=== PATIENT | female | born 1960 | race Caucasian/White ===

== ENCOUNTER 2021-11-10 09:53 | Outpatient (CLI) | payer OTHER, SELFPAY ==
--- NOTE | 2021-11-10 09:57 | ECG_ITS ---
Measurements Intervals [place] Rate: 73 P: 25 [place]: 139 QRS: -13 QRSD: 85 T: 12 QT: 369 QTc: 409 Interpretive Statements SINUS RHYTHM NORMAL ECG NO PREVIOUS ECG AVAILABLE FOR COMPARISON Electronically Signed On 11-10-2021 16:10:58 CDT by Td Sinclair M.D.
[2021-11-10 12:09] LABS: Hematocrit 45.6 % (37.0-47.0); Hemoglobin 15.4 g/dL (12.0-15.0)
== END 2021-11-10 09:54 | disposition home or self-care (01) ==
LOC: ANHSURGERY 09:56
PROVIDERS: Anesthesiology; PCP Family Medicine; Visit Provider Surgery Plastic and Reconstructive Surgery
DX: Z01.818 Encounter for other preprocedural examination (principal)
CPT/HCPCS: 36415; 85014; 85018; 93005

== ENCOUNTER 2021-11-16 01:00 | Day surgery (SDC) | payer OTHER, SELFPAY ==
[2021-11-06 15:32] VITALS: BMI 29.2
--- NOTE | 2021-11-06 15:45 | PC.NURSE ---
Report to the Outpatient Waiting Room, entrance under the green pavilion located off [facility], at time 6:00 on date 11/16/21. OR Time: 7:30. - You and your visitor will be asked a series of questions to screen for COVID 19 for your protection. - A mask is required within the hospital. One visitor will be allowed to accompany the patient into the hospital. Patients visitor will be instructed to remain with patient at all times or leave the building. We will allow the visitor to come back to the postoperative area when patient is ready. Preoperative COVID Testing Requirements: No COVID Test needed if: (proof is required; if not received patient will have Rapid Test prior to entry) - Patient has received COVID Vaccine at least 14 days prior to procedure date or - Patient has positive COVID test result within last 90 days of surgery date. COVID Test needed if above criteria is not met Patients may have clear liquids (water, carbonated beverages, clear teas, apple juice) until 3 hours prior to surgery (4:30) with a maximum of 20 ounces. - No food from midnight until time of surgery Take the following medications with a SIP of water the morning of surgery: ALPRAZOLAM (IF NEEDED), AMLODIPINE, BUPROPION, PROGESTERONE, THYROID Medications to discontinue per physician: N/A Date to take last dose: N/A Please no make-up, nail occitan, hairspray, perfume, deodorant, or body powder the day of surgery. No jewelry (including any body piercings) or valuables the day of surgery, leave them at home. Please take a shower or bath the night before, or the morning of, surgery with an antibacterial soap. Wear comfortable, loose fitting clothing. - Jewelry must be removed prior to entering the operating room. Rings and piercings that are not removed may be cut off. - The hospital will not accept responsibility for valuables. - Please leave all valuables, including medications, at home the day of surgery. If you are going home after surgery, a licensed straight truck driver must drive you home. - NO public transportation without another adult. - We recommend that an adult stay with you for 24 hours following discharge. - We also recommend that you do not drive, make important decision, drink alcoholic beverages, or take any drugs that were not prescribed by your health care provider for at least 24 hours after your discharge time. Follow any additional instructions given to you from your surgeon. Telephone instructions given to MIGEL NI and asked if any additional questions and then verbalized understanding. Patient advised to call surgeon office or pre surgery nurse liaison [phone] if any additional questions.
[2021-11-16] VITALS (8 sets, daily range): BP systolic 124–148; BP diastolic 69–94; PULSE 78–89; RESP 12–18; TEMP 35.8–37; O2SAT 94–100
--- NOTE | 2021-11-16 05:57 | W.PM.PROC2 ---
Procedure Note - Detailed Date of Procedure 11/16/21 Pre-op Diagnosis skin laxity, localized adiposity Post-op Diagnosis Same Procedure Performed 1. Belt lipectomy 2. Abdominal suction lipectomy 3. Bilateral axillary suction lipectomy Surgeon Romario Eckert MD Anesthesia General Findings Lipoaspirate volume: 2750 cc Tissue removed: 2024 cc Description of Procedure They are here today for the above. Previously and again today the risks, benefits, alternatives were discussed in extensive detail. I wanted them to be very realistic about the risks involved as well as expectations. We discussed aftercare and what to monitor for. I was very upfront about the risks of wound breakdown leading to loss of skin, open wounds, and need for additional procedures with permanent abdominal deformity. We discussed DVT/PE risks and management. Made sure answered all of their questions to their satisfaction today and consent was obtained. They were marked in the preoperative holding area with their verification. For marking of the back she was placed in slight flexion. The patient was taken to the operating room. Anesthesia was provided by anesthesiology. A Ceron catheter was started. Placed supine on the operating room table. They were prepped and draped in a standard sterile fashion. A surgical time-out was taken. Examination was completed and stab incisions were made. A tumescent solution was utilized and given adequate time for hemostasis. Suction lipectomy was completed based on pre-operative planning based on S.A.F.E. technique utilizing a 5mm basket cannula. A 10 blade was used to make the posterior incision and intervening tissue was removed as planed down to level of fascia. This was tailor taked into placed and closed with 0 PDO barbed suture, 3-0 tensile strength strattafix, 4-0 moncryl, and steri strips. She was then placed supine and a 360 degree prep was completed. Re-draped in a standard sterile fashion. I placed the patient in a flexed position to verify the upper and lower markings would reach. I then placed supine. A thorough abdominal examination was completed. Stab incisions were made and tumescent solution infiltrated. Suction lipectomy was completed as above again utilizing S.A.F.E. technique and a 5mm basket cannula. This included axillary which was (as identified / verified by patient) a small pocket inferior to bilateral axilla on the chest wall. Patient was turned into each lateral decubitus position to verify contour. A 10 blade was used to make the upper incision. I continued dissection down to the level of fascia. Elevated just what was necessary for repair of the diastasis. I then again flexed the bed to verify the upper skin flap would reach the lower markings without tension. Once verified I placed her supine once again and a 10 blade used to make the lower incision. I elevated up to level the umbilicus and left the umbilicus intact on a well-vascularized stalk. The intervening tissue was removed. A 2 mm blunt cannula with 0.5% bupivicaine was injected deep to the fascia bilaterally. I plicated the diastasis recti using 0 PDO stratafix barbed suture. This was in 2 separate layers using 2 separate sutures as well. I repaired around the umbilicus leaving plenty of room for well-vascularized stalk of the umbilicus with 2-0 PDS. I also repaired lateral to the rectus using two layers of 0 PDO stratafix. The patient was flexed and starting from superior to inferior began plication using 2-0 Vicryl to obliterate all space in a standard progressive tension fashion. At the umbilicus I marked out the location of the skin and inset this with 3-0 Monocryl and 4-0 Vicryl. I continued the remainder of the plication using 2-0 Vicryl until I reached my lower planned scar line. I trimmed any excess skin of the upper flap making sure this was a tension-free closure. I then approximated using a 3
--- NOTE | 2021-11-16 06:16 | P.PNAN_ITS ---
Anes - Initial Pre Proc Eval Procedure: Operation Date: 11/16/21 07:30 Proposed Procedures p Belt Lipectomy with - Romario Eckert MD s Abdominal Liposuction, Bilateral Axillary Liposuction - Romario Eckert MD Date/Time: 11/16/21 06:16 Surgeon: Romario Eckert MD Pre Op Diagnosis: skin laxity Patient Data Age: 61 Gender: F Height: 1.6 m Weight: 74.84 kg Allergies Allergy/AdvReac Type Severity Reaction Status Date / Time Sulfa (Sulfonamide Allergy Unknown Rash Verified 11/06/21 15:29 Antibiotics) Home Medications Medication Instructions Recorded Confirmed Type amlodipine 5 mg tablet 5 mg PO DAILY 10/26/20 11/06/21 History thyroid (pork) 15 mg tablet 15 mg PO DAILY 10/26/20 11/06/21 History carisoprodol 350 mg tablet 350 mg PO TID PRN #21 tablet 11/02/21 11/06/21 Rx docusate sodium 100 mg capsule 100 mg PO DAILY #14 cap 11/02/21 11/06/21 Rx ondansetron 4 mg disintegrating 4 mg PO Q8H #21 tablet 11/02/21 11/06/21 Rx tablet oxycodone-acetaminophen 5 mg-325 1 tablet PO Q6H PRN #30 tablet 11/02/21 11/06/21 Rx mg tablet alprazolam 0.25 mg PO PRN PRN 11/06/21 11/06/21 History bupropion HCl (smoking deter) 150 mg PO BID 11/06/21 11/06/21 History famotidine 20 mg PO DAILY 11/06/21 11/06/21 History progesterone micronized 100 mg PO DAILY 11/06/21 11/06/21 History trazodone 100 mg PO HS 11/06/21 11/06/21 History Patient hx anesthesia problems: none Family hx anesthesia problems: none Results Review: All pre-operative results and documents have been reviewed as part of the pre-operative evaluation. [facility] Past Medical History Medical History (Updated 11/16/21 @ 06:16 by Shivam Duval DO) Asthma Hypertension Thyroid disease Surgical History Surgical History History of blepharoplasty History of endometrial ablation History of foot surgery History of knee surgery History of shoulder surgery History of tonsillectomy Family History Family History Father Diabetes mellitus Social History Social History Smoking status: Never smoker Alcohol intake: current Alcohol use details: 2/MONTH Substance use: never Substance use type: does not use Living arrangements: with family Spiritual care concerns: No Anes - Eval Final PreProcedure Day of Procedure 11/16/21 06:16 Patient weight: overweight Heart: regular rate and rhythm Lungs: clear to auscultation and normal air movement Airway: Mallampati scale class II Neurological: alert and oriented Last oral intake: >/= 8 hours ASA classification: III Emergent: no Anesthetic plan: proceed Anesthesia type and monitoring: general ETT and standard monitoring Results Review: All pre-operative results and documents have been reviewed as part of the pre-operative evaluation. Informed Consent: The patient's anesthetic plan and its attendant risks and benefits were discussed with the patient/family/POA. Questions were solicited and answers provided to the satisfaction of the patient/family/POA.
[2021-11-16 06:52] LABS: Urine Cotinine NEGATIVE
--- NOTE | 2021-11-16 06:54 | WPDHPUPDATE1 ---
History and Physical Update Update Date/Time: 11/16/21 06:54 History and Physical has been reviewed, including an updated exam of the patient. There are NO changes in the patient's condition. Risks, benefits, and alternatives have been discussed and questions answered. Patient agrees to proceed with procedure.
[2021-11-16] MEDS: LACTATED RINGERS 1,000 ML 30 ML IV CONT ×2 (07:25→12:48)
[2021-11-16] MEDS: LACTATED RINGERS IRRIG 1,000 ML, LIDOCAINE HCL 1% LOCAL INJ 50 ML, EPINEPHrine HCL INJ ... INFILTRATE (07:34)
[2021-11-16] MEDS: TRANEXAMIC ACID 1,000MG/ISO100 1,000 MG/100 ML BAG 200 MG IVPB (07:34)
[2021-11-16] MEDS: ceFAZolin 2 GM/D5W 50 ML 2 GM/50 ML BAG IVPB (07:51)
[2021-11-16] MEDS: fentaNYL CITRATE INJ (*CRX) 100 MCG/2 ML VIAL 25 MCG IV PUSH ×2 (13:37→13:45)
[2021-11-16] MEDS: diphenhydrAMINE HCl INJ 50 MG/ML VIAL 25 MG IV PUSH (13:39)
--- NOTE | 2021-11-16 14:00 | PC.NURSE ---
This patient, Bev Johnson, was received from PACU on 11/16/21 at 1400. Patient oriented to unit policies and routines
[2021-11-16] MEDS: LACTATED RINGERS 1,000 ML 125 ML IV CONT (15:06)
[2021-11-16] MEDS: ONDANSETRON INJ 4 MG/2 ML VIAL IV PUSH (15:07)
[2021-11-16] MEDS: MORPHINE SULFATE (*CRX) 2 MG/ML INJ IV PUSH (15:07)
[2021-11-16] MEDS: carisoprodoL (*CRX) 350 MG TABLET PO (17:45)
[2021-11-16] MEDS: diazePAM (*CRX) 5 MG TABLET PO ×2 (17:45→23:58)
[2021-11-16] MEDS: oxyCODONE/ACETAMINOPHEN (*CRX) 5-325 MG TABLET PO (17:45)
[2021-11-16] MEDS: ENOXAPARIN 40 MG/0.4 ML SYRINGE SUB-Q ×2 (17:47→18:13)
[2021-11-16] MEDS: diphenhydrAMINE HCl CAP 25 MG CAPSULE PO (18:00)
[2021-11-16] MEDS: DOCUSATE SODIUM 100 MG CAPSULE PO (21:00)
[2021-11-16] MEDS: buPROPion HCL SR (12 HR) 150 MG TAB PO (21:00)
[2021-11-17] VITALS: BP 140/81; PULSE 86; RESP 17; TEMP 37
[2021-11-17] MEDS: oxyCODONE/ACETAMINOPHEN (*CRX) 5-325 MG TABLET PO ×3 (00:01→11:16)
[2021-11-17] MEDS: carisoprodoL (*CRX) 350 MG TABLET PO ×3 (00:01→11:39)
--- NOTE | 2021-11-17 07:24 | WPDPN ---
Progress Note: A&P Assessment and Plan (1) Encounter for cosmetic surgery: Code(s): Z41.1 - Encounter for cosmetic surgery Status: Acute Assessment and Plan: Doing well after: 1. Belt lipectomy 2. Abdominal suction lipectomy 3. Bilateral axillary suction lipectomy Will discharge home. Today we had a lengthy discussion about the care. What to monitor for. Activity limitations. Lengthy open-ended conversation making sure answered all of her questions. We discussed what is an emergency and went to proceed ER/dial 911. Explained she can call with any questions or concerns at any time. I will see her back. Time Spent With Patient Time with patient: 25 - 35 minutes Subjective Date/time seen: 11/17/21 07:15 She is doing very well after: 1. Belt lipectomy 2. Abdominal suction lipectomy 3. Bilateral axillary suction lipectomy Pain controlled. Ambulating. Tolerating some diet. No fevers or chills. No nausea vomiting. No shortness of breath. No chest pain. No calf tenderness. Review of Systems Review of Systems: All systems reviewed & are unremarkable except as noted in HPI and below Exam Narrative: Alert oriented no obvious distress Respiratory unlabored Lateral chest wall with no signs of infection, no hematoma. No seroma. Good color and capillary refill Abdomen, flank, back with good color and capillary refill. No infection. No hematoma. No seroma. No calf tenderness. Negative Homans. Objective Data Vital Signs Vital Signs: Vital Signs - 24 hr 11/16/21 12:48 11/16/21 13:00 11/16/21 13:15 Temperature 35.8 C L 35.8 C L 35.8 C L Pulse Rate 88 78 86 Respiratory Rate 16 12 18 Blood Pressure 145/69 H 124/85 133/94 H Pulse Oximetry 100 100 100 11/16/21 13:30 11/16/21 13:45 11/16/21 14:00 Temperature 36.0 C L 36.1 C L 36.2 C L Pulse Rate 81 84 89 Respiratory Rate 18 14 18 Blood Pressure 138/94 H 138/84 148/88 H Pulse Oximetry 96 94 99 11/16/21 18:45 11/17/21 00:00 Temperature 37.0 C 37.0 C Pulse Rate 88 86 Respiratory Rate 16 17 Blood Pressure 145/82 H 140/81 Pulse Oximetry Intake/Output Intake/Output: Intake & Output 03/22/22 03/23/22 03/24/22 03/25/22 23:59 23:59 23:59 23:59 Intake Total 540 Output Total 750 Balance -210 Meds/Results Medications: Active Medications Generic Name Dose Route Start Last Admin Trade Name Freq PRN Reason Stop Dose Admin Amlodipine Besylate 5 mg 11/17/21 09:00 Amlodipine Besylate 5 Mg Tablet PO DAILY KHRIS Bupropion HCl 150 mg 11/16/21 21:00 11/16/21 21:00 Bupropion Hcl Sr (12 Hr) 150 Mg Tab PO 150 mg Q12HR KHRIS Administration Carisoprodol 350 mg 11/16/21 18:00 11/17/21 05:32 Carisoprodol (*Crx) 350 Mg Tablet PO 350 mg Q6HR KHRIS Administration Diazepam 5 mg 11/16/21 12:39 11/16/21 23:58 Diazepam (*Crx) 5 Mg Tablet PO 5 mg TID PRN Administration Anxiety Diphenhydramine HCl 25 mg 11/16/21 17:48 11/16/21 18:00 Diphenhydramine Hcl Cap 25 Mg Capsule PO 25 mg Q6H PRN Administration Itching Docusate Sodium 100 mg 11/16/21 21:00 11/16/21 21:00 Docusate Sodium 100 Mg Capsule PO 100 mg Q12HR KHRIS Administration Enoxaparin Sodium 40 mg 11/16/21 19:00 11/16/21 18:13 Enoxaparin 40 Mg/0.4 Ml Syringe SUB-Q 40 mg QPM KHRIS Administration Famotidine 20 mg 11/17/21 09:00 Famotidine 20 Mg Tablet PO DAILY [facility] Morphine Sulfate 2 mg 11/16/21 12:39 11/16/21 15:07 Morphine Sulfate (*Crx) 2 Mg/Ml Inj IV PUSH 2 mg Q2H PRN Administration Pain Ondansetron HCl 4 mg 11/16/21 12:39 11/16/21 15:07 Ondansetron Inj 4 Mg/2 Ml Vial IV PUSH 4 mg Q6H PRN Administration Nausea Oxycodone/Acetaminophen 1 - 2 tablet 11/16/21 12:39 11/17/21 05:32 Oxycodone/Acetaminophen (*Crx) 5-325 Mg Tablet PO 2 tablet Q6H PRN Administration Pain Thyroid 30 mg 11/17/21 09:00 Thyroid 30 Mg Tablet PO
--- NOTE | 2021-11-17 07:27 | PM.DS ---
DS: Admitting Diagnosis Discharge Date 11/17/2021 Admitting Diagnosis Encounter for cosmetic surgery DS: Discharge Diagnosis Discharge Diagnosis (1) Encounter for cosmetic surgery: Code(s): Z41.1 - Encounter for cosmetic surgery Status: Acute DS: Summary Hospital Course Hospital Course: Doing very well after: 1. Belt lipectomy 2. Abdominal suction lipectomy 3. Bilateral axillary suction lipectomy Will discharge home. Time Spent with Patient Time attestation: Total time spent providing and/or coordinating discharge services: Exam Narrative: Alert oriented no obvious distress Respiratory unlabored Lateral chest wall with no signs of infection, no hematoma. No seroma. Good color and capillary refill Abdomen, flank, back with good color and capillary refill. No infection. No hematoma. No seroma. No calf tenderness. Negative Homans. Discharge Plan Discharge Patient Disposition: Home, Self-Care Discharge Instructions: POST OPERATIVE DISCHARGE INSTRUCTIONS ROMARIO ECKERT M.D. [facility] [address] [place] [address] [address] for 24 hours after anesthesia and while you are taking pain medication. Take all prescribed medication as directed Diet as tolerated. No lifting or activity that raises blood pressure for 48 hours. Regular walking / ambulation. May shower. Once you shower do not take pain medication before showering as the combination of medication and heat may cause you to feel dizzy or pass out. No pools or tubs for 2 weeks. Call with any questions or concerns. No straining or lifting more than 20 pounds for 6 weeks. Slowly stand up straight as tolerated. Dressing Care: Abdominal binder 23 hours per day. Surgical bra / sports bra 23 hours per day. If you have any questions or concerns, please call the office . If it is after hours you will be directed to the medical secretary receptionist exchange. Shortness of breath, chest pain, or other medical emergency dial 911 / proceed to the Emergency Room. Stand Alone Forms: General Discharge Instructions Follow-up/Referrals: Romario Eckert MD [Physician] - 1 Week Discharge Medications: Continued amlodipine 5 mg tablet 5 mg PO DAILY RF: 0 thyroid (pork) [[place] Thyroid] 15 mg tablet 15 mg PO DAILY RF: 0 ondansetron 4 mg tablet,disintegrating 4 mg PO Q8H Qty: 21 RF: 0 docusate sodium [Colace] 100 mg capsule 100 mg PO DAILY Qty: 14 RF: 0 carisoprodol [Soma] 350 mg tablet 350 mg PO TID PRN (Reason: muscle pain) Qty: 21 RF: 0 oxycodone-acetaminophen [Percocet] 5-325 mg tablet 1 tablet PO Q6H PRN (Reason: pain) Qty: 30 RF: 0 alprazolam 0.25 mg tablet 0.25 mg PO PRN PRN (Reason: Anxiety) RF: 0 famotidine 20 mg Tablet 20 mg PO DAILY RF: 0 trazodone 100 mg tablet 100 mg PO HS RF: 0 progesterone micronized 100 mg capsule 100 mg PO DAILY RF: 0 bupropion HCl (smoking deter) 150 mg tablet extended release 12 hr 150 mg PO BID RF: 0
[2021-11-17 07:50] VITALS: BP 98/65; PULSE 91; RESP 18; TEMP 37; O2SAT 96
[2021-11-17] MEDS: buPROPion HCL SR (12 HR) 150 MG TAB PO (09:17)
[2021-11-17] MEDS: THYROID 30 MG TABLET PO (09:17)
[2021-11-17] MEDS: amLODIPine BESYLATE 5 MG TABLET PO (09:18)
[2021-11-17] MEDS: FAMOTIDINE 20 MG TABLET PO (09:18)
[2021-11-17] MEDS: DOCUSATE SODIUM 100 MG CAPSULE PO (09:18)
[2021-11-17] MEDS: diphenhydrAMINE HCl CAP 25 MG CAPSULE PO (11:19)
== END 2021-11-17 11:52 | disposition home or self-care (01) ==
LOC: ANHSURGERY 07:17 → ANHOB2 13:50
PROVIDERS: PCP Family Medicine; Visit Provider Surgery Plastic and Reconstructive Surgery
PROC: (CPT 15830; principal; 2021-11-16 07:30)
PROC: (CPT 15877; 2021-11-16 07:30)
DX: Z41.1 Encounter for cosmetic surgery (principal); L57.4 Cutis laxa senilis; E65 Localized adiposity; I10 Essential (primary) hypertension; J45.909 Unspecified asthma, uncomplicated; E07.9 Disorder of thyroid, unspecified; Z79.899 Other long term (current) drug therapy
CPT/HCPCS: 15830; 15847; 15878; 15877; 80307; 99199; A9270; J0171; J0690; J1100; J1170; J1200; J1650; J2250; J2270; J2405; J2704; J3010; J7120